=== PATIENT | male | born 2000 | race Hispanic/Latino ===

== ENCOUNTER 2021-07-07 17:13 | Emergency (ER) | payer OTHER ==
[~2021-07-07] VITALS: Ht 167.6 cm; Wt 61.2 kg
[2021-07-07] MEDS ORDERED: FLUCONAZOLE 100 MG TAB PO ONE (17:30)
[2021-07-07 17:38] LABS: APPEARANCE,URINE Clear (CLEAR); BILIRUBIN,URINE Negative (NEGATIVE); COLOR,URINE Dark Yellow (YELLOW); GLUCOSE, URINE (UA) Negative (NEGATIVE); KETONES,URINE Negative (NEGATIVE); LEUKOCYTE ESTERASE ,URINE Negative (NEGATIVE); NITRATE,URINE Negative (NEGATIVE); OCCULT BLOOD,URINE Negative (NEGATIVE); PROTEIN,URINE Negative (NEGATIVE)
[2021-07-07 18:13] VITALS: BP 122/67
[2021-07-07 18:13] LABS: ALBUMIN 4.3 g/dL (3.5-5.0); BILIRUBIN,TOTAL 0.6 mg/dL (0.2-1.0); POTASSIUM 3.2 mmol/L (3.5-5.1); TOTAL PROTEIN, SERUM 7.9 g/dL (6.0-8.3)
[2021-07-07] MEDS ORDERED: TOLN30CR TP (18:24)
[2021-07-07] MEDS ORDERED: POTASSIUM BICARB/CIT AC 25 MEQ TABLET.EFF PO ONE (18:30)
[2021-07-11 23:07] LABS: CHLAMYDIA DNA N.A.AMPLIFY Negative (Negative)
== END 2021-07-07 18:34 | disposition home or self-care (01) ==
LOC: EDH 17:13
DX: B37.42 Candidal balanitis (principal); E87.6 Hypokalemia
CPT/HCPCS: 36415; 80053; 81003; 87486; 87797